=== PATIENT | female | born 1975 | race Caucasian/White ===

== ENCOUNTER 2018-08-29 23:25 | Emergency (ER) | payer OTHER ==
[~2018-08-29] VITALS: Ht 160 cm; Wt 103.4 kg
[2018-08-29 23:30] VITALS: BP 153/98
--- NOTE | 2018-08-29 23:30 | NUR ---
PATIENT TRIAGED. VSS, GIVEN URINE CUP. PT TRIED AND RECENTLY URINATED PRIOR TO TRIAGE.
--- NOTE | 2018-08-30 01:16 | NUR ---
PT AMBULATED TO BED 4
--- NOTE | 2018-08-30 01:19 | NUR ---
PATIENT PRESENTS TO ED WITH PT C/O URINARY BURNING/UTI SX'S - BACK PAIN. PT STATES URINARY FREQUENCY AND L SIDED BACK, DENIES N/V/D; SKIN IS PINK/WARM/DRY; AAOX4 WITH EVEN AND STEADY GAIT; LUNGS CLEAR BL; HR EVEN AND REGULAR; PT DENIES ANY FEVER, CP, SOB, OR COUGH AT THIS TIME; PATIENT STATES PAIN OF 4/10 AT THIS TIME; VSS; PATIENT POSITIONED FOR COMFORT; HOB ELEVATED; BEDRAILS UP X2; BED DOWN. ER MD MADE AWARE OF PT STATUS.
[2018-08-30 02:44] VITALS: BP 144/78
--- NOTE | 2018-08-30 02:44 | NUR ---
Patient discharged with v/s stable. Written and verbal after care instructions given and explained. Patient alert, oriented and verbalized understanding of instructions. Ambulatory with steady gait. All questions addressed prior to discharge. ID band removed. Patient advised to follow up with PMD. Rx of MOTRIN AND CIPRO given. Patient educated on indication of medication including possible reaction and side effects. Opportunity to ask questions provided and answered.
== END 2018-08-30 02:44 | disposition home or self-care (01) ==
LOC: MED 23:25
DX: N39.0 Urinary tract infection, site not specified (principal)
CPT/HCPCS: 81002; 81025; 99283

== ENCOUNTER 2021-09-04 05:04 | Emergency (ER) | payer OTHER ==
[~2021-09-04] VITALS: Ht 162.6 cm; Wt 108.9 kg
[2021-09-04 05:06] VITALS: BP 118/84
--- NOTE | 2021-09-04 05:12 | NUR ---
PT AMBULATED TO BED 11.
[2021-09-04] MEDS ORDERED: KETOROLAC 60 MG/2 ML VIAL IM ONE (05:30)
--- NOTE | 2021-09-04 05:34 | NUR ---
XRAY AT BEDSIDE
--- NOTE | 2021-09-04 05:57 | NUR ---
46 Y/O FEMALE BIB SELF, C/O LEFT KNEE PAIN X2 MO AND WORSENING OVER THE LAST 2 DAYS. PATIENT PRESENTS TO ED WITH LEFT KNEE SWEELING AND PAIN W/O BRUISING; CMS PRESENT. PT STATES OVER THE LAST 2 MONTHS HER KNEE HAS BEEN BOTHERING HER AND ONLY OVER THESE LAST X2 DAYS HAS THE PAIN GOTTEN UNTOLERABLE. PT DENIES INJURY, DENIES N/V/D; SKIN IS PINK/WARM/DRY; AAOX4 AMBULATES WITH A LIMP; PT DENIES ANY FEVER, CP, SOB, OR COUGH AT THIS TIME; PATIENT STATES PAIN OF 9/10 AT THIS TIME; VSS; PATIENT POSITIONED FOR COMFORT; HOB ELEVATED; BEDRAILS UP X1; BED DOWN. ER MD MADE AWARE OF PT STATUS. DENIES PMH NKDA GABAPENTIN
[2021-09-04] MEDS ORDERED: NAPR-54 PO (06:06)
--- NOTE | 2021-09-04 06:15 | NUR ---
ER MD AT BEDSIDE EXPLAINING PT RESULTS IN [place]
[2021-09-04 06:16] VITALS: BP 118/84
--- NOTE | 2021-09-04 06:20 | NUR ---
Patient discharged with v/s stable. Written and verbal after care instructions given and explained. Patient alert, oriented and verbalized understanding of instructions. Ambulatory with steady gait. All questions addressed prior to discharge. ID band removed. Patient advised to follow up with PMD. Rx of Naproxen given. Patient educated on indication of medication including possible reaction and side effects. Opportunity to ask questions provided and answered. VSS, A/Ox4, ambulatory, unlabored breathing, and calm demeanor.
== END 2021-09-04 06:20 | disposition home or self-care (01) ==
LOC: MED 05:04
DX: S83.92XA Sprain of unspecified site of left knee, initial encounter (principal); Z79.899 Other long term (current) drug therapy; X58.XXXA Exposure to other specified factors, initial encounter; Y93.89 Activity, other specified; Y92.89 Other specified places as the place of occurrence of the external cause; Y99.8 Other external cause status
CPT/HCPCS: 73562; 96372; 99283; J1885; Q0092